=== PATIENT | male | born 1965 | race Caucasian/White ===

== ENCOUNTER → 2016-11-12 | Outpatient (CLI) | payer OTHER ==
--- NOTE | ~2016-11-12 | ST ---
Unit #: [id number] #: [id number] Patient: KAREY GALLAGHER [id number] [address] [address] [id number] O MR#: [id number] NAME: KAREY GALLAGHER : 1965 SEX: M STUDY DATE/TIME: 11/12/2016 UNIT: [facility] ROOM: STUDY DESCRIPTION: Exercise stress test Attending Physician: Manpreet Greene M.D. Referring Physician: Manpreet Greene M.D. Primary Care Physician: Manpreet Greene M.D. CARDIOLOGY REPORT EXAM Exercise stress test. FINDINGS The baseline EKG shows normal sinus rhythm, left anterior hemiblock and poor R wave progression in V1, V2. The patient exercised for a total duration of 7 minutes and 53 seconds achieving a heart rate of 155 beats per minute which is more than submaximal predicted for his age. He denied any chest discomfort. The test was stopped because of leg fatigue and dyspnea. No ST segment shift to suggest ischemia was noted. No arrhythmias were precipitated. Blood pressure response was abnormal with no fall in the diastolic pressure with appropriate rise in the systolic pressure. Recovery phase was uneventful. IMPRESSION Submaximal exercise stress test shows: 1. Low probability of significant ischemic heart disease. 2. Poor exercise tolerance. 3. Hypertensive response to exercise. 4. No exercise induced angina. Dictated by... Adwoa Nicolas/daniel TD: 11/15/2016 06:14 JOB #: [id number] CARDIOLOGY REPORT Page 1 of 1 X Igor Armstrong MD CARDIOLOGY REPORT
== END | disposition home or self-care (01) ==
LOC: CEKG 07:29
DX: R07.89 Other chest pain (principal); E66.9 Obesity, unspecified
CPT/HCPCS: 93017